=== PATIENT | female | born 1965 | race Caucasian/White ===

== ENCOUNTER 2017-03-19 11:03 | Emergency (ER) | payer SELFPAY ==
[~2017-03-19] VITALS: Ht 152.4 cm; Wt 84.1 kg
[~2017-03-19 11:03] MED LIST: PRILOSEC20 MG PO; PROVERA,CYCRIN10 MG PO; SYNTHROID112 MCG PO
[2017-03-19 13:09] LABS: HEMATOCRIT 36.5 % (36.0-46.0); MCH 29.2 PG (29.0-34.0); MCHC 32.6 G/DL (30.0-36.0); MCV 89.7 FL (83-99); PLATELET COUNT 303 K/uL (156-360); RBC DIS.WIDTH-SD 42.4 % (39-53); RED BLOOD COUNT 4.07 M/uL (3.80-5.20); WHITE BLOOD COUNT 10.3 K/uL (4.1-10.2)
[2017-03-19 13:17] LABS: INTER. NORMALIZED RATIO 0.9
[2017-03-19 13:19] LABS: PTT 26.5 SEC (25-37)
[2017-03-19 13:20] LABS: CHLORIDE 106 mEq/L (99-109); POTASSIUM 4.6 mEq/L (3.7-5.4); SODIUM 138 mEq/L (136-147)
[2017-03-19 13:22] LABS: GLUCOSE 83 mg/dL (70-99)
[2017-03-19 13:23] LABS: ANION GAP 8 MEQ/L (2-14)
[2017-03-19 13:24] LABS: TOTAL BILIRUBIN 0.5 mg/dL (0.0-1.0)
[2017-03-19 13:25] LABS: ALKALINE PHOSPHATASE 68 IU/L (3-129)
[2017-03-19 13:26] LABS: GFR ESTIMATE (CALCULATED) > 59 mL/min/
[2017-03-19 13:27] LABS: UREA NITROGEN (BUN) 10 mg/dL (9-23)
[2017-03-19] MEDS ORDERED: XARELTO1 EACH PO (15:52)
[2017-03-19 16:54] VITALS: BP 154/95
== END 2017-03-19 16:54 | disposition home or self-care (01) ==
LOC: EME 11:03
PROVIDERS: Nurse Practitioner Family
DX: I82.811 Embolism and thrombosis of superficial veins of right lower extremity (principal); K21.9 Gastro-esophageal reflux disease without esophagitis
CPT/HCPCS: 80053; 85027; 85610; 85730; 93971; 99281; 99284